=== PATIENT | female | born 1965 | race Caucasian/White ===

== ENCOUNTER 2024-04-08 06:59 | Emergency (ER) | payer BC ==
[~2024-04-08] VITALS: Ht 162.6 cm; Wt 87.3 kg
[~2024-04-08 06:59] MED LIST: ACYCLOVIR400 MG PO; BETAMETHASONE0.1% TP; EFFEXOR75 MG PO; HYDROXYZINE HCL25 MG PO
[2024-04-08] MEDS ORDERED: Acetaminophen 500 MG TAB PO ONE (07:30)
[2024-04-08] MEDS ORDERED: Ketorolac 30 MG/ML VIAL IV ONE (07:30)
[2024-04-08] MEDS ORDERED: NS 1,000 ML IV ONE (07:30)
[2024-04-08 07:36] LABS: HEMATOCRIT 43.7 % (37.0-47.0); HEMOGLOBIN 15.3 g/dl (12.5-16.0); MEAN CELL VOLUME 91 fl (80.0-100.0); MEAN CORPUSCULAR HEMOGLOBIN 32 pg (27-31); MEAN CORPUSCULAR HGB CONC 35 g/dl (33.0-37.0); PLATELET COUNT 206 K/mm3 (130-400); RED BLOOD COUNT 4.82 M/mm3 (4.10-5.30); REDCELL DISTRIBUTION WIDTH-CV 13.1 % (11.5-14.5)
[2024-04-08 07:57] LABS: ALBUMIN 3.8 g/dL (3.5-5.0); BILIRUBIN,TOTAL 0.5 mg/dL (0.2-1.2); CALCIUM 9.6 mg/dL (8.4-10.2); CREATININE, serum 1.08 mg/dL (0.57-1.11); POTASSIUM 4.3 mEq/L (3.5-4.5); TOTAL PROTEIN 7.6 g/dl (6.2-8.1)
[2024-04-08 08:03] LABS: BAND 5 % (0-10); EOSINOPHIL 1 % (0-4); LYMPHOCYTE 25 % (20.0-51.0); NEUTROPHILS 63 % (42.0-75.2); PLATELET ESTIMATE NORMAL (NORMAL); TROPONIN-I 0.017 ng/mL (0.00-0.033)
[2024-04-08 10:02] VITALS: BP 118/63; PULSE 85; TEMP 98.8
== END 2024-04-08 10:13 | disposition home or self-care (01) ==
LOC: COL.ER 06:59
PROVIDERS: Emergency Medicine
DX: B34.9 Viral infection, unspecified (principal); R00.0 Tachycardia, unspecified; R09.81 Nasal congestion; R51.9 Headache, unspecified; R06.02 Shortness of breath
CPT/HCPCS: J1885; J7030